=== PATIENT | male | born 1970 | race Caucasian/White ===

== ENCOUNTER 2017-08-10 15:44 | Emergency (ER) | payer SELFPAY ==
[~2017-08-10] VITALS: Ht 175.2 cm; Wt 90.7 kg
[~2017-08-10 15:44] MED LIST: OXYCODONE5 M1 PO; PERCOCET 325 MG1 TA7 PO
== END 2017-08-10 16:08 | disposition home or self-care (01) ==
LOC: ED 15:44
DX: S01.81XA Laceration without foreign body of other part of head, initial encounter (principal); Z88.5 Allergy status to narcotic agent; W22.8XXA Striking against or struck by other objects, initial encounter; Y93.89 Activity, other specified; Y92.89 Other specified places as the place of occurrence of the external cause; Y99.9 Unspecified external cause status

== ENCOUNTER 2021-04-06 19:21 | Emergency (ER) | payer SELFPAY | END 2021-04-07 00:30 | disposition home or self-care (01) | LOC: ED 19:21 | DX: S96.912A Strain of unspecified muscle and tendon at ankle and foot level, left foot, initial encounter (principal); F17.200 Nicotine dependence, unspecified, uncomplicated; Z88.6 Allergy status to analgesic agent; W54.1XXA Struck by dog, initial encounter; Y93.89 Activity, other specified; Y92.89 Other specified places as the place of occurrence of the external cause; Y99.8 Other external cause status ==

== ENCOUNTER 2023-05-09 16:02 | Emergency (ER) | payer OTHER ==
[~2023-05-09] VITALS: Ht 175.2 cm; Wt 93.0 kg
[2023-05-09 16:40] LABS: MEAN CELL VOLUME 97.2 fl (80.0-94.0); MEAN CORPUSCULAR HGB 31.1 pg (27.0-31.0); PLATELET COUNT AUTOMATED 223 10*3/uL (130-400); RED BLOOD COUNT 4.63 10*6/uL (4.50-5.90); RED CELL DISTRI WIDTH 13.2 % (0-14.5); WHITE BLOOD COUNT 11.8 10*3/uL (4.8-10.8)
[2023-05-09 16:42] LABS: MANUAL DIFF REFLEX YES
[2023-05-09 17:01] LABS: ALKALINE PHOSPHATASE 67 U/L (46-116); BUN 9 mg/dl (9-23); CHLORIDE 106 mmol/L (98-107); LIPASE 27 U/L (12-53); POTASSIUM 4.1 mmol/L (3.4-5.1); SGPT/ALT 11 U/L (5-49); TOTAL PROTEIN 7.2 gm/dL (6.0-8.0)
[2023-05-09 17:06] LABS: PLATELET SUFFICIENCY NORMAL (NORMAL); TOTAL CELLS COUNTED 100 #CELLS
[2023-05-09 17:17] LABS: BILIRUBIN Negative (Negative); BLOOD Negative (Negative); CLARITY Clear (Clear); COLOR Yellow (Yellow); GLUCOSE Negative (Negative); KETONE Negative (Negative); LEUKO ESTERASE Negative (Negative); NITRITE Negative (Negative); PH 5.5 (4.5-8.0); SPECIFIC GRAVITY <= 1.005 (1.001-1.030); UROBILINOGEN 0.2 E.U./dl (0.0-1.0)
== END 2023-05-09 17:51 | disposition home or self-care (01) ==
LOC: ED 16:02
PROVIDERS: Nurse Practitioner Family
DX: N20.0 Calculus of kidney (principal); M54.50 Low back pain, unspecified; Z88.5 Allergy status to narcotic agent